=== PATIENT | female | born 1975 | race Caucasian/White ===

== ENCOUNTER 2018-11-24 19:34 | Inpatient (IN) | payer SELFPAY ==
[2018-11-24 20:07] VITALS: BMI 29.6
[2018-11-24 20:24] LABS: BASO % 0.2 % (0.0-2.0); EOS % 0.1 % (0.0-4.0); HEMOGLOBIN 8.8 g/dL (11.0-16.0); LYMPH % 9.5 % (20.0-40.0); MEAN CORPUSCULAR HEMOGLOBIN 23.5 pg (27.0-31.0); MEAN CORPUSCULAR HGB CONC 31.4 g/dL (33.0-37.0); MEAN PLATELET VOLUME 8.6 fL (7.2-11.7); MONO # 0.3 K/uL (0.0-0.8); MONO % 2.7 % (0.0-10.0); NEUT # 9.5 K/uL (1.8-7.0); NEUT % 87.5 % (50.0-75.0); NRBC % 0.1 % (0.0-2.0); PLATELET COUNT 219 K/uL (130-400); RBC 3.75 Mil/uL (3.80-5.20); RED CELL DISTRIBUTION WIDTH 15.6 % (11.5-14.5); WHITE BLOOD COUNT 10.9 K/uL (4.8-10.8)
[2018-11-24] MEDS ORDERED: Lactated Ringer's 1,000 ML IV ONE (20:31)
[2018-11-24] MEDS ORDERED: cefOXitin IV 2 gm in Dextrose 2 GM/50 ML BAG IVPB ONE (20:33)
[2018-11-24] MEDS ORDERED: Sodium Citrate/Citric Acid 15 ml Sol PO ONE (20:37)
[2018-11-24 20:40] LABS: ALB/GLOB RATIO 1.2 (1.0-2.1); ALBUMIN 3.9 g/dL (3.5-5.0); ALT/SGPT 9 U/L (9-52); AST/SGOT 22 U/L (14-36); BLOOD UREA NITROGEN 6 mg/dL (7-17); GFR NON-AFRICAN AMERICAN > 60
[2018-11-24 20:41] LABS: BARBITURATES, UR NEGATIVE (NEGATIVE); BENZODIAZEPINES, UR NEGATIVE (NEGATIVE); OPIATES, UR NEGATIVE (NEGATIVE); PHENCYCLIDINE, UR NEGATIVE (NEGATIVE)
[2018-11-24] MEDS ORDERED: Oxytocin 20 units in LR 2,000 ML IV ONE (20:43)
[2018-11-24] MEDS ORDERED: Lactated Ringer's 1,000 ML IV SCH (20:45)
[2018-11-24 20:49] LABS: RAPID PLASMA REAGIN NONREACTIVE (NONREACTIVE)
--- NOTE | 2018-11-24 20:54 | OBHP ---
Datetime: 11/24/2018 20:39 IP Adm Impression: Term, intrauterine IP Chief Complaint Other: No movement x 1 day IP Adm Impression Other: Previuos C/S x 2 IP Admit Plan: Admit to unit; Initiate Section protocol Admit Comment, IP Provider: Thisis a private patient of Dr. Jaja Hare 43 y.o. , LMP unsure, HEIDE 12/14/18, EGA 37w 1d c/o no movement today. Decreased movement 1 day prior. (+) loss of fluid at 2000 hours 11/23/18. Denies VB or contractions. (+) vagina l pressure "like the baby is coming", P Ob: , 2003, male, 6lb, [facility]. C/S x 2: 2006, female, 6 1/2 lb, [facility]; 2015, female, 6l b, [facility] [place]. No complications with any of these deliveries. Spont Ab x 1, 8-12 weeks; no D_C. 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 x 16 years Fam Hx: Mother alive 54 - HTN. Father - complications from emphysema. P.E.: as above. WD in NAD; very anxios re: well-being. Awake, alert, oriented to time, perso n and place. Accompanied by Assessment: 43 y.o. P3043, 37w 1d, previous C/S x 2, prelabor rupture of membranes; oligohydramnio s. Category 1 tracing. Arron is cloinically stable. Case endorsed to private OB Plan: 1) ADmit 2) NPO 3) Admission/ labs 4) Continuous EEFM 5) Abdominal prep and shcave 6) Mullen 7) Mefoxin 8) Notify peds 9) NOtify anesthesia 10) theology professor to O.R. Pelvic Type - PN: Not Done Extremities - PN: Normal Abdomen - PN: Normal Back - PN: Normal Breast - PN: Not Done Lungs - PN: Normal Heart - PN: Normal Thyroid - PN: Not Done Neurologic - PN: Normal HEENT - PN: Normal General - PN: Normal Presentation-Admit: Vertex FHR - Baseline A Provider: 130 Contraction Comments Provider: irregular Comments, ACOG Physical Exam: Abdomen: Gravid. Soft. Nontender. Fundal height 37cm Bedside sono: cephalic, anterior placenta, (+)FBM; (+)FM; ZOË 3.0 cm (MVP 2.45) All other systems reviewed and are negative Gestation - Est Wks by US: 37 weeks 1 day EGA AdmitDate IP: 37.1 Vital Signs Provider: Reviewed; Within Normal Limits IP Chief Complaint: Suspected ruptured membranes; Other NICHD Variability Prov Fetus A: Moderate 6-25bpm NICHD Accel Fetus A IP Provider: 15X15 FHR Category Provider Fetus A: Category I NICHD Decel Fetus A IP Provider: None Dilatation, Provider: deferred Genitourinary Exam: Not Done DTRs - PN: Normal
[2018-11-24] MEDS ORDERED: ePHEDrine 50 mg/ml Inj ONE (20:56)
[2018-11-24] MEDS ORDERED: Morphine 1 mg/ml preservative-free Inj(Duramorph) ONE (20:57)
[2018-11-24 21:10] LABS: HEPATITIS B SURFACE AG Negative (NEGATIVE)
[2018-11-24] MEDS ORDERED: Midazolam 2 MG/2 ML VIAL ONE (21:30)
[2018-11-24 22:01] LABS: SQUAMOUS EPITHIAL 2 /hpf (0-5); URINE BACTERIA OCC (<OCC); URINE BILIRUBIN NEGATIVE (NEGATIVE); URINE BLOOD 1+ (NEGATIVE); URINE CLARITY Clear (Clear); URINE COLOR Yellow (YELLOW); URINE GLUCOSE (UA) NORMAL (Normal); URINE LEUKOCYTE ESTERASE NEG Leu/uL (Negative); URINE PROTEIN NEGATIVE (NEGATIVE); URINE UROBILINOGEN NORMAL mg/dL (0.2-1.0)
[2018-11-24] MEDS ORDERED: Oxycodone/Acetaminophen 5/325 mg Tab PO PRN (22:21)
[2018-11-24] MEDS ORDERED: Oxytocin 30 UNIT in NS 500 ml 30 UNITS/500 ML BAG IV ONE (22:21)
[2018-11-24 22:58] LABS: ANISOCYTOSIS SLIGHT; BANDS 1 % (0-2); LYMPHOCYTE 10 % (20-40); MONOCYTE 2 % (0-10); NEUTROPHIL 87 % (50-75); POIKILOCYTOSIS SLIGHT; TOTAL CELLS COUNTED 100
[2018-11-24 22:59] LABS: HYPOCHROMIC SLIGHT; MICROCYTOSIS SLIGHT; PLATELET ESTIMATE NORMAL (NORMAL)
[2018-11-25] MEDS ORDERED: DiphenhydrAMINE 50 mg/ml Inj IVP ONE ×2 (05:00→10:30)
[2018-11-25] MEDS ORDERED: DiphenhydrAMINE 50 mg/ml Inj ONE (05:09)
[2018-11-25] MEDS: ceFAZolin 1 gm FROZEN Premix 1 GM/50 ML ML IVPB SCH ×3 (05:42→21:46)
[2018-11-25 08:44] LABS: HEMOGLOBIN 7.8 g/dL (11.0-16.0); MEAN CELL VOLUME 75.3 fL (81.0-99.0); MEAN CORPUSCULAR HEMOGLOBIN 24.2 pg (27.0-31.0); MEAN CORPUSCULAR HGB CONC 32.1 g/dL (33.0-37.0); RBC 3.23 Mil/uL (3.80-5.20); RED CELL DISTRIBUTION WIDTH 15.6 % (11.5-14.5)
[2018-11-25 08:47] LABS: WHITE BLOOD COUNT 16.9 K/uL (4.8-10.8)
[2018-11-25] MEDS: Oxycodone/Acetaminophen 5/325 mg Tab PO PRN ×2 (08:56→20:13)
[2018-11-25 09:01] LABS: ALB/GLOB RATIO 1.1 (1.0-2.1); ALT/SGPT 9 U/L (9-52); AST/SGOT 30 U/L (14-36); BLOOD UREA NITROGEN 5 mg/dL (7-17); CALCIUM 8.6 mg/dl (8.6-10.4); GFR NON-AFRICAN AMERICAN > 60
[2018-11-25] MEDS: Simethicone 80 mg Chewtab PO SCH ×4 (09:08→21:50)
[2018-11-25] MEDS: Prenatal Multivit/Folic Acid/Iron Tab PO SCH (09:09)
--- NOTE | 2018-11-25 10:19 | OBDS ---
DELIVERY PERSONNEL Delivery Doctor: Jaja Hare MD Scrub Nurse: Sonia Chenulator: Violet Cohen RN Anesthesiologist: MATERNAL INFORMATION Delivery Anesthesia: Spinal Medications in Delivery: Pitocin 20units Estimated Blood Loss (ml): 800 Placenta Cultured: No Maternal Complications: None RN Comments: live baby boy born via c/section Provider Comments: repeat cxs b/l slapinetocmy #3 ebl 800 ml live male ifnant agpar 9,9 weigh tof 6bls 6 ounce no cmpicaotns LABOR SUMMARY EDC: 12/14/2018 00:00 No. Babies in Womb: 1 Attempted: No Labor Anesthesia: None LABOR INFORMATION Reason for Induction: Not Applicable Oxytocin: N/A Group B Beta Strep: Not Done MEMBRANES Membranes Rupture Method: Spontaneous Rupture of Membranes: 11/23/2018 20:00 Length of Rupture (hrs): 25.67 STAGES OF LABOR Stage 3 hrs: 0 Stage 3 min: 1 CSECTION DELIVERY Primary Indication: Repeat Elective CSection Urgency: Elective CSection Incidence: Repeat Labor: No Labor Elective: Elective CSection Incision: Lower Uterine Transverse Sterilization Procedure: [place] BABY A INFORMATION Infant Delivery Date/Time: 11/24/2018 21:40 Method of Delivery: Born in Route : No : N/A Forceps: N/A Vacuum Extraction: N/A Shoulder Dystocia : No SHOULDER DYSTOCIA BABY A Infant Delivery Date/Time: 11/24/2018 21:40 PRESENTATION/POSITION BABY A Presentation: Cephalic Cephalic Presentation: Vertex Breech Presentation: N/A PLACENTA INFORMATION BABY A Placenta Delivery Time : 11/24/2018 21:41 Placenta Method of Delivery: Spontaneous Placenta Status: Delivered SCORES BABY A Heart Rate 1 min: >100 bpm Resp Effort 1 min: Good Cry Reflex Irritability 1 min: Cough or Sneeze or Pulls Away Muscle Tone 1 min: Active Motion Color 1 min: Body [place], Extremities Blue SCORE 1 MIN: 9 Heart Rate 5 min: >100 bpm Resp Effort 5 min: Good Cry Reflex Irritability 5 min: Cough or Sneeze or Pulls Away Muscle Tone 5 min: Active Motion Color 5 min: Body [place], Extremities Blue SCORE 5 MIN: 9 INFORMATION BABY A Gestational Age at Delivery: 37.1 Gestational Status: Term Infant Outcome : Liveborn Infant Condition : Stable Sex: Male IDENTIFICATION/MEDS BABY A ID Band Number: [id number] ID Band Location: Left Leg; Left Arm Sensor Applied: Yes Sensor Number: [id number] Sensor Location : Cord Clamp WEIGHT/LENGTH BABY A Birthweight (gms): 2890 Weight (lb): 6 Weight (oz): 6 Length Inches: 18.50 Length cms: 47.0 CORD INFORMATION BABY A No. Cord Vessels: 3 Nuchal Cord : N/A Cord Blood Taken: Yes Infant Suction: Mouth; Nose ASSESSMENT BABY A Infant Complications: None Physical Findings at Delivery: Within Normal Limits Respirations: Appears Normal Party Host/Hostess/ALS Called : No Care By: Transferred To: Remains with Mother
--- NOTE | 2018-11-25 10:20 | OBDS ---
DELIVERY PERSONNEL Delivery Doctor: Jaja Hare MD Scrub Nurse: Sonia Chenulator: Violet Cohen RN Anesthesiologist: MATERNAL INFORMATION Delivery Anesthesia: Spinal Medications in Delivery: Pitocin 20units Estimated Blood Loss (ml): 800 Placenta Cultured: No Maternal Complications: None RN Comments: live baby boy born via c/section Provider Comments: repeat cxs b/l slapinetocmy #3 ebl 800 ml live male ifnant agpar 9,9 weigh tof 6bls 6 ounce no cmpicaotns LABOR SUMMARY EDC: 12/14/2018 00:00 No. Babies in Womb: 1 Attempted: No Labor Anesthesia: None LABOR INFORMATION Reason for Induction: Not Applicable Oxytocin: N/A Group B Beta Strep: Not Done MEMBRANES Membranes Rupture Method: Spontaneous Membranes Rupture Method: Spontaneous Rupture of Membranes: 11/23/2018 20:00 Rupture of Membranes: 11/23/2018 20:00 Length of Rupture (hrs): 25.67 STAGES OF LABOR Stage 3 hrs: 0 Stage 3 min: 1 CSECTION DELIVERY Primary Indication: Repeat Elective CSection Urgency: Elective CSection Incidence: Repeat Labor: No Labor Elective: Elective CSection Incision: Lower Uterine Transverse Sterilization Procedure: [place] BABY A INFORMATION Infant Delivery Date/Time: 11/24/2018 21:40 Method of Delivery: Born in Route : No : N/A Forceps: N/A Vacuum Extraction: N/A Shoulder Dystocia : No SHOULDER DYSTOCIA BABY A Infant Delivery Date/Time: 11/24/2018 21:40 PRESENTATION/POSITION BABY A Presentation: Cephalic Cephalic Presentation: Vertex Breech Presentation: N/A PLACENTA INFORMATION BABY A Placenta Delivery Time : 11/24/2018 21:41 Placenta Method of Delivery: Spontaneous Placenta Status: Delivered SCORES BABY A Heart Rate 1 min: >100 bpm Resp Effort 1 min: Good Cry Reflex Irritability 1 min: Cough or Sneeze or Pulls Away Muscle Tone 1 min: Active Motion Color 1 min: Body [place], Extremities Blue SCORE 1 MIN: 9 Heart Rate 5 min: >100 bpm Resp Effort 5 min: Good Cry Reflex Irritability 5 min: Cough or Sneeze or Pulls Away Muscle Tone 5 min: Active Motion Color 5 min: Body [place], Extremities Blue SCORE 5 MIN: 9 INFORMATION BABY A Gestational Age at Delivery: 37.1 Gestational Status: Term Outcome : Liveborn Condition : Stable Sex: Male IDENTIFICATION/MEDS BABY A ID Band Number: [id number] ID Band Location: Left Leg; Left Arm Sensor Applied: Yes Sensor Number: [id number] Sensor Location : Cord Clamp WEIGHT/LENGTH BABY A Birthweight (gms): 2890 Weight (lb): 6 Weight (oz): 6 Infant Length Inches: 18.50 Infant Length cms: 47.0 CORD INFORMATION BABY A No. Cord Vessels: 3 Nuchal Cord : N/A Cord Blood Taken: Yes Infant Suction: Mouth; Nose ASSESSMENT BABY A Complications: None Physical Findings at Delivery: Within Normal Limits Respirations: Appears Normal Electronics Tester/ALS Called : No Infant Care By: Transferred To: Remains with Mother
--- NOTE | 2018-11-25 10:23 | OBPPN ---
Datetime: 11/25/2018 10:16 PP Pain Prov: Within normal limits PP Nausea Prov: Denies PP Flatus Prov: Yes PP BM Prov: No PP Breasts Prov: Normal PP Heart Prov: Normal PP Lungs Prov: Normal PP Abdomen/Uterus Prov: Normal PP Lochia Prov: Normal PP Vulva/Perineum Prov: Normal PP CVA Tenderness Prov: Normal PP Extremities Prov: Normal PP C/S Incision Prov: Normal PP Progress Prov: Normal PP Impression Prov: Normal progression; Pain PP Plan Prov: Continue present management PP Progress Note Prov: pt seen and examiend rpeort itchign over skin and pain over iciion not conlte e with po pain medcaion. pt is abmautign out of bed, voiidng, not passing flatus, todlerated diet. tp densi any dissyznes, cp, sob. pt is breast feedign adn alex any sadness or dperwssion VS see aobe PE GEN NAD AA ox 3 BReast : non tendner, non engorbed b/l CVS: RRR, +S1/S2 RESP: Ctab/l ABD: soft, TTP over inccsion no guarding no reboud tndner, nor gitye, +BS INCCION C/D/I Steri strp in tackt FUDN:S non tender, at ubmiucs VE: mnimal lochai non cousl smeling EX:T no calf tendnerss, negative homans sign a/p s/p RLTCS + B/L salpientom POD #1 with chronic asypomtic anemia pain manmgent: po/ IV prn regaurl diet encoaurge ambatuin/ breast feeding benadryl prn itch incentive spironeter, abodmnal bidner repeat cbc iron/stool osfter Vital Signs Provider PP: Reviewed
--- NOTE | 2018-11-25 10:25 | OBADHP ---
Datetime: 11/24/2018 20:39 IP Chief Complaint Other: No movement x 1 day IP Adm Impression Other: Previuos C/S x 2 Admit Comment, IP Provider: 43 y.o. , LMP unsure, HEIDE 12/14/18, EGA 37w 1d c/o no movem ent today. Decreased movement 1 day prior. (+) loss of fluid at 2000 hours 11/23/18. Denies VB o r contractions. (+) vaginal pressure "like the baby is coming", P Ob: , 2004, male, 6lb, [facility]. C/S x 2: 2006, female, 6 1/2 lb, [facility]; 2015, female, 6l b, [facility] [place]. No complications with any of these deliveries. Spont Ab x 1, 8-12 weeks; no D_C. 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 x 16 years Fam Hx: Mother alive 54 - HTN. Father - complications from emphysema. P.E.: as above. WD in NAD; very anxios re: well-being. Awake, alert, oriented to time, perso n and place. Accompanied by Assessment: 43 y.o. P3043, 37w 1d, previous C/S x 2, prelabor rupture of membranes; oligohydramnio s. Category 1 tracing. Arron is cloinically stable. Case endorsed to private OB Plan: 1) ADmit 2) NPO 3) Admission/ labs 4) Continuous EEFM 5) Abdominal prep and shcave 6) Mullen 7) Mefoxin 8) Notify peds 9) NOtify anesthesia 10) call circuit worker to O.R. agree, pt intially prsneted with decreased mvoments and had beside US with olgiiodram, then reprots some leakage at 8pm clear . pt was having ctx pain every 3-5 min when evlauted 8:40pm. that w as increasign intsntiy adn james. pt was examiend and noted to be 3/60/-2 clearf luid r/b/a/i of rltcs adn b/ls alpiencotmy dw paeitnt as desired permeant steriolzaiton covermign for pt priavate Pelvic Type - PN: Not Done Extremities - PN: Normal Abdomen - PN: Normal Back - PN: Normal Breast - PN: Not Done Lungs - PN: Normal Heart - PN: Normal Thyroid - PN: Not Done Neurologic - PN: Normal HEENT - PN: Normal General - PN: Normal Presentation-Admit: Vertex FHR - Baseline A Provider: 130 Contraction Comments Provider: irregular Comments, ACOG Physical Exam: Abdomen: Gravid. Soft. Nontender. Fundal height 37cm Bedside sono: cephalic, anterior placenta, (+)FBM; (+)FM; ZOË 3.0 cm (MVP 2.45) All other systems reviewed and are negative Gestation - Est Wks by US: 37 weeks 1 day Vital Signs Provider: Reviewed; Within Normal Limits IP Chief Complaint: Suspected ruptured membranes; Other NICHD Variability Prov Fetus A: Moderate 6-25bpm NICHD Accel Fetus A IP Provider: 15X15 FHR Category Provider Fetus A: Category I NICHD Decel Fetus A IP Provider: None Dilatation, Provider: deferred Genitourinary Exam: Not Done DTRs - PN: Normal EGA AdmitDate IP: 37.1 IP Adm Impression: Term, intrauterine IP Admit Plan: Admit to unit; Initiate Section protocol
[2018-11-25] MEDS ORDERED: DiphenhydrAMINE 50 mg/ml Inj IVP STA (17:39)
[2018-11-25] MEDS ORDERED: Bisacodyl 5mg EC Tab PO ONE (22:22)
[2018-11-26] MEDS: Oxycodone/Acetaminophen 5/325 mg Tab PO PRN ×2 (04:15→14:23)
[2018-11-26 07:39] LABS: BASO % 0.2 % (0.0-2.0); EOS % 0.3 % (0.0-4.0); LYMPH # 2.3 K/uL (1.0-4.3); LYMPH % 17.5 % (20.0-40.0); MEAN CELL VOLUME 76.5 fL (81.0-99.0); MEAN CORPUSCULAR HEMOGLOBIN 24.2 pg (27.0-31.0); MEAN CORPUSCULAR HGB CONC 31.6 g/dL (33.0-37.0); MEAN PLATELET VOLUME 8.7 fL (7.2-11.7); MONO % 7.7 % (0.0-10.0); NEUT # 9.6 K/uL (1.8-7.0); NEUT % 74.3 % (50.0-75.0); NRBC % 0.1 % (0.0-2.0); RBC 2.89 Mil/uL (3.80-5.20); RED CELL DISTRIBUTION WIDTH 15.6 % (11.5-14.5)
[2018-11-26] MEDS: Simethicone 80 mg Chewtab PO SCH ×4 (09:15→21:26)
[2018-11-26] MEDS: Prenatal Multivit/Folic Acid/Iron Tab PO SCH (09:20)
[2018-11-26] MEDS: Oxycodone/Acetaminophen 5/325 mg Tab PO SCH ×2 (15:35→21:26)
--- NOTE | 2018-11-26 16:39 | OP ---
PROCEDURE DATE: 11/24/2018 PREOPERATIVE DIAGNOSES: Premature rupture of membranes, oligohydramnios, previous section, multiparity, desires permanent sterilization. POSTOPERATIVE DIAGNOSES: Premature rupture of membranes, oligohydramnios, previous section, multiparity, desires permanent sterilization. PROCEDURE PERFORMED: Repeat low transverse section, bilateral salpingectomy. SURGEON: Jaja Hare MD OPERATIVE FINDINGS: Normal-appearing uterus, tubes, and ovaries. Live , cephalic presentation, Apgars 9 and 9. Weight of 6 pounds 6 ounces. No fluid noted. Recorder Helper [employer] was present for delivery. Dr. Garret Crenshaw was the surgical asst, present for the entire case, especially in gaining entry, retraction, exposure, helping hold the bladder blade, delivering the baby, closing all layers, and was present for the entire case. ANESTHESIA: Spinal. ESTIMATED BLOOD LOSS: 800 mL. BLOOD PRODUCTS: None. COMPLICATIONS: None. SPECIMENS: Placenta, right and left fallopian tube. INDICATION: The patient is a 43-year-old para 2 with two previous sections that presented to Labor and Delivery with decreased movement. The patient was evaluated and had NST and a bedside ultrasound was done with oligohydramnios. The patient then reportedly given some fluid starting the previous night at 8 p.m. A speculum exam which confirmed rupture. The patient was noted to be 3 cm dilated, in early labor. Risks, benefits, alternatives, and indications of repeat low transverse section were discussed with the patient in addition to bilateral salpingectomy and permanent sterilization fertility, which the patient desires. DESCRIPTION OF PROCEDURE: The patient was taken to the operating room where she was given spinal anesthesia. Once found to be adequate, she was placed on the operating table in dorsal supine position with legs supported using stirrups. The patient was then prepped and draped in the usual sterile fashion. A time-out confirmed correct patient and correct procedure. Bimanual exam was performed with abovementioned findings with rupture of membranes at 3 cm. A Pfannenstiel skin incision was made with a scalpel and carried down to the underlying fascia with Bovie. The fascia was incised in the midline. The incision was extended laterally with Bovie. The inferior aspect of the fascial incision was grasped with Paul clamps and the underlying rectus muscles were dissected off bluntly with use of Khanna Scissors. The rectus muscles were then bluntly in the midline using two Allis clamps and entered into clear space. The peritoneum entered in a clear space. The incision was extended laterally and superiorly until there was good visualization of the bladder. The lower end of the [place] was then reinserted. The vesicouterine peritoneum was incised with Metzenbaum scissors. The bladder flap was created digitally. Lower uterine segment were then re-inserted. Lower uterine segment was incised in a transverse fashion. The uterine incision was extended laterally with bandage scissors. The surgeon's hand entered the uterine cavity. The infant's head was delivered atraumatically, followed by delivery of the shoulders, followed by delivery of the body. Both oral and nasal passages of the baby were bulb suctioned. The umbilical cord was clamped and cut. The baby was handed off to the awaiting financial service professional. Cord blood and cord gases were collected and sent x2. The placenta was then delivered manually. The uterus was exteriorized and cleared of all clots and debris. The uterine incision was closed with 0 Vicryl in a running continuous locked fashion. A second layer of the same suture was used to close the uterus in a continuous manner and running imbricating manner. Good hemostasis was noted at the uterine incision site. Following this, the fallopian tubes were then identified by the distal fimbriated end which was elevated with a Marita clamp. The LigaSure device was then applied along to the mesosalpinx from the distal fimbriated end up to close area of the cornua. Both, right and left fallopian tubes were removed. Following this, good hemostasis was noted. The uterus was then returned to the abdomen. Pericolic gutters were cleared of all clots and debris. There was good hemostasis noted on all operative sites. The peritoneum was reapproximated with 2-0 chromic in a running continuous fashion. The rectus was reapproximated with a 2-0 chromic in an interrupted manner. The fascia was reapproximated and closed with 0 Vicryl in a running continuous fashion. The subcutaneous space was closed with a 2-0 plain in an interrupted manner. The skin was reapproximated with 4-0 Monocryl in a running subcuticular fashion. At the end of the procedure, all needle, sponge, and instrument counts were noted to be correct x2. The patient tolerated the procedure well and was transferred to the recovery room in stable condition. Jaja Hare MD
--- NOTE | 2018-11-26 17:56 | OBPPN ---
Datetime: 11/26/2018 12:30 PP Pain Prov: Within normal limits PP Nausea Prov: Denies PP Flatus Prov: Yes PP BM Prov: Yes PP Breasts Prov: Not Done PP Heart Prov: Normal PP Lungs Prov: Normal PP Abdomen/Uterus Prov: Normal PP Lochia Prov: Normal PP Vulva/Perineum Prov: Normal PP CVA Tenderness Prov: Normal PP Extremities Prov: Normal PP C/S Incision Prov: Normal PP Progress Prov: Normal PP Comments Phys Exam Prov: Fundus firm and non-tender Incision clean, Dry and intact PP Impression Prov: Normal progression PP Plan Prov: Continue present management PP Progress Note Prov: Pt seen and examined per Dr. Hare's request POD # 2 C/O of feeling dizzie and lightheaded upon standing and aware of PP H_H 7.0/22.1 Counseled xtensively re benefits of blood transfusion since symptomatic acute anemia and adamantly declines precautions reviewed re rapid standing and walking and verbalized understanding Fe and Colace increased to TID Advised to increase po water and fiber intake in her diet Also complaint of not adequate pain control and pain med schedule was changed to scheduled Motrin and Percocet alternating Q 3 hours and ATC Encourage ambulation on hallways Advance care Hope to discharge home in AM IP PP Procedures: None Vital Signs Provider PP: Reviewed
[2018-11-27] MEDS: Oxycodone/Acetaminophen 5/325 mg Tab PO SCH (03:11)
[2018-11-27] MEDS: Oxycodone/Acetaminophen 5/325 mg Tab PO PRN ×2 (06:01→11:37)
[2018-11-27 08:08] VITALS: BP 128/88; PULSE 82; RESP 18; O2SAT 100
--- NOTE | 2018-11-27 08:51 | OBDCSUM ---
Datetime: 11/27/2018 08:14 Discharged to, Provider: Home Follow up at, Provider: Dr Jaja Hare Disch Instr Activity: Normal activity; May be up to bathroom; May be up for meals; May Shower Disch Instr Diet: Regular Discharge Instructions, Provider: Routine instructions given Discharge Diagnosis, Provider: Term Delivered Discharge Time: 11/27/2018 10:00 Follow up in weeks, Provider: 1 week Disch Activity Restrictions: No lifting; No sexual activity; Nothing in vagina - [place], tampon s, douche Discharge Comment, Provider: Patient seen and examined at bedside. Per nursing no acute events overn ight. Patient reports having pain along the right side of her incision. She states that she has been taking 2 tabs of percocet to control her pain. Lochia is mild. She is ambulating and tolerating diet. Urinating without difficulty. Bottle feeding. Denies headaches, dizziness, cp, palpitations, sob, ur inary symptoms. VS: 128/88 82 97.1 Gen: NAD, AAOx3 Abd: Soft, fundus firm, incision c/d/i Ext: No clubbing, cyanosis, edema Labs: 10.9>8.8/28.1<219 16.9>7.8/24.4<215 13.0>7.0/22.1<212 B positive Rubella immune A/P: Patient is a 43 year old at 37w1d s/p RLTCD POD#3 -Stable, afebrile -Pain control with motrin and percocet -Encourage ambulation, hydration, ISS use -Encourage -Acute blood loss anemia: Patient refusing blood transfusion, continue Iron PO TID and Colace PO T ID -Anticipate D/C home today: pelvic rest x 6 weeks, F/U with Dr Hare in 1 week for incision check Plan discussed with Dr Selvin Kaur DO PGY-2 Pt seen and examined with Dr. Kaur and all of her findings and POC were fully discussed and agree d on. Pt in Stable and Satisfactory condition and discharged home with instructions and Rx's for Motrin and Percocet Discharge Diagnosis Prov Other: Acute blood loss anemia
[2018-11-27] MEDS: Prenatal Multivit/Folic Acid/Iron Tab PO SCH (09:21)
[2018-11-27] MEDS: Simethicone 80 mg Chewtab PO SCH (09:23)
[2018-11-27] MEDS ORDERED: Influenza Vaccine 60 mcg/0.5 mL SYR (4YR UP) IM ONE (09:38)
[2018-11-27 20:46] VITALS: TEMP 97.1
== END 2018-11-27 16:44 | disposition home or self-care (01) | DRG 784 ==
LOC: C.EROB 19:34 → C.4D 19:50 → C.4M 11-25 01:33
PROVIDERS: ADMIT Obstetrics & Gynecology; ATTEND Obstetrics & Gynecology
PROC: 10D00Z1 Extraction of Products of Conception, Low, Open Approach (ICD-10-PCS; principal; 2018-11-24)
PROC: 0UT70ZZ Resection of Bilateral Fallopian Tubes, Open Approach (ICD-10-PCS; 2018-11-24)
DX: O42.02 Full-term premature rupture of membranes, onset of labor within 24 hours of rupture (principal); D62 Acute posthemorrhagic anemia; O34.211 Maternal care for low transverse scar from previous cesarean delivery; O36.8130 Decreased fetal movements, third trimester, not applicable or unspecified; O99.02 Anemia complicating childbirth; Z3A.37 37 weeks gestation of pregnancy; Z37.0 Single live birth; Z30.2 Encounter for sterilization; Z53.29 Procedure and treatment not carried out because of patient's decision for other reasons